=== PATIENT | female | born 1965 | race Caucasian/White ===

== ENCOUNTER → 2016-05-28 | Outpatient (CLI) | payer OTHER | LOC: FIMAGING 14:28 | PROVIDERS: ATTEND Internal Medicine Interventional Cardiology | DX: Z13.6 Encounter for screening for cardiovascular disorders (principal); Z82.49 Family history of ischemic heart disease and other diseases of the circulatory system ==

== ENCOUNTER → 2016-09-03 | Outpatient (CLI) | payer OTHER | LOC: FIMAGING 07:29 | PROVIDERS: ATTEND Family Medicine | DX: Z12.31 Encounter for screening mammogram for malignant neoplasm of breast (principal) | CPT/HCPCS: G0202 ==

== ENCOUNTER 2018-03-20 22:53 | Emergency (ER) | payer OTHER ==
[2018-03-20 22:59] VITALS: BP 141/8
--- NOTE | 2018-03-20 23:02 | EDPHY ---
H & P Stated Complaint: Bleeding in L ear intermittent, denies pain Time Seen by Provider: 03/20/18 23:02 HPI/ROS: HPI CHIEF COMPLAINT: Blood From ear canal. HISTORY OF PRESENT ILLNESS: 52-year-old female, otherwise healthy without significant medical history presents emergency room with blood from her ear canal. Patient states that she has been cleaning her ear canal with Q-tips she denies any trauma to her ear. She denies loss of hearing, denies ringing in her ear, denies pain, denies fever, denies sore throat. She is unaware of any trauma. She notes bright red blood from her left ear canal. No other drainage or discharge. Has been using Q-Tips and alcohol to clean her ear. Does not recall any trauma or scratching in. Past Medical History: No significant medical history Past Surgical History: No significant surgical history Social History: Denies drugs alcohol tobacco. Family History: Noncontributory ROS REVIEW OF SYSTEMS: 10 Systems were reviewed and negative with the exception of the elements mentioned in the history of present illness. Exam Constitutional appears well nontoxic triage nursing summary reviewed, vital signs reviewed, awake/alert. Eyes normal conjunctivae and sclera, EOMI, PERRLA. HENT right TM and canal normal, left TM normal intact, no blood, however the ear canal a 1/[address] into the ear canal is a small bloody lesion appears to be possibly a scratch, there is a scab there, no active bleeding, otherwise atraumatic ear canal except for this 1 focal area. No mass visualized. moist mucus membranes, no epistaxis, neck supple/ no meningismus, no raccoon eyes. Respiratory clear to auscultation bilaterally, normal breath sounds, no respiratory distress, no wheezing. Cardiovascular rate normal, regular rhythm, no murmur, no edema, distal pulses normal. Gastrointestinal soft, non-tender, no rebound, no guarding, normal bowel sounds, no distension, no pulsatile mass. Genitourinary no CVA tenderness. Musculoskeletal no midline vertebral tenderness, full range of motion, no calf swelling, no tenderness of extremities, no meningismus, good pulses, neurovascularly intact. Skin pink, warm, & dry, no rash, skin atraumatic. Neurologic awake, alert and oriented x 3, AAOx3, moves all 4 extremities equally, motor intact, sensory intact, CN II-XII intact, normal cerebellar, normal vision, normal speech. Psychiatric normal mood/affect. Heme/Lymph/Immune no lymphadenopathy. Differential Diagnosis: Includes but is not limited to perforated eardrum, ruptured eardrum, tumor, ear canal is abrasion bleeding, ear canal laceration Medical Decision Making: Plan for this patient direct visualization of her ear canal and TM. Re-evaluation: I was able to visualize her left TM is intact, not ruptured, no blood behind. However her ear canal shows a focally lesion that may be bleeding there is a scab present. No active bleeding. I do recommend she follows up with ENT closely. Understands to have this recheck to make sure it is not further bleeding or growth or anything. She agrees with this plan. She is comfortable being discharged. Return precautions discussed with her return emergency room with bleeding. Follow up with ENT on Friday. Source: Patient - Personal History LMP (Females 10-55): Post Menopausal Current Tetanus Diphtheria and Acellular Pertussis (TDAP): Yes Tetanus Vaccine Date: 2015 - Medical/Surgical History Hx Asthma: No Hx Chronic Respiratory Disease: No Hx Diabetes: No Hx Cardiac Disease: No Hx Renal Disease: No Hx Cirrhosis: No Hx Alcoholism: No Hx HIV/AIDS: No Hx Splenectomy or Spleen Trauma: No Other PMH: Denies - Social History Smoking Status: Never smoked Constitutional: Initial Vital Signs Temperature (C) 36.8 C 03/20/18 22:54 Heart Rate 80 03/20/18 22:54 Respiratory Rate 17 03/20/18 22:54 Blood Pressure 141/8 H 03/20/18 22:54 O2 Sat (%) 95 03/20/18 22:54 O2 Delivery Mode Room Air Allergies/Adverse Reactions: No Known Allergies Allergy (Unverified 03/20/18 22:54) Home Medications: Medication Instructions Recorded NK [No Known Home Meds] 03/20/18 Departure - Departure Disposition: Home, Routine, Self-Care Clinical Impression: Bleeding from ear Qualifiers: Laterality: left Qualified Code(s): H92.22 - Otorrhagia, left ear Condition: Good Instructions: Earache (ED) Additional Instructions: 1. Please follow up with ENT 2. Call Friday for follow-up appointment 3. Return emergency room if worsening symptoms. Referrals: Maryse Gurrola MD [Primary Care Provider] - As per Instructions Danny Gonzales MD [Medical Doctor] - As per Instructions Phyllis Mendez MD [Medical Doctor] - As per Instructions
== END 2018-03-20 23:27 | disposition home or self-care (01) ==
DX: H92.22 Otorrhagia, left ear (principal)

== ENCOUNTER → 2018-06-12 | Outpatient (CLI) | payer OTHER ==
[~2018-06-12] MED LIST: GADOBUTROL 10 ML VIAL IVP ONE
== END ==
LOC: FIMAGING 06:36
PROVIDERS: ATTEND Otolaryngology
DX: H90.42 Sensorineural hearing loss, unilateral, left ear, with unrestricted hearing on the contralateral side (principal); R42 Dizziness and giddiness
CPT/HCPCS: A9585

== ENCOUNTER → 2018-06-15 | Outpatient (CLI) | payer OTHER | LOC: FIMAGING 16:10 | PROVIDERS: ATTEND Family Medicine | DX: Z12.31 Encounter for screening mammogram for malignant neoplasm of breast (principal) ==